=== PATIENT | female | born 1950 | race Asian ===

== ENCOUNTER 2023-05-10 08:19 | Observation (INO) | payer OTHER ==
[~2023-05-10] VITALS: Ht 149.9 cm; Wt 52.2 kg
[2023-05-10 08:30] VITALS: BP_SYST 182; PULSE 86; RESP 22; TEMP 98.2; O2SAT 98
[2023-05-10] MEDS: LABETALOL HCL 20 MG/4 ML CARTRIDGE IVP ONE (09:22)
[2023-05-10 09:31] LABS: BASOPHILS # (AUTO) 0.1 K/uL (0.0-0.2); BASOPHILS % (AUTO) 1.9 % (0.0-2.0); EOSINOPHILS # (AUTO) 0.3 K/uL (0.0-0.4); EOSINOPHILS % (AUTO) 5.5 % (0.0-4.0); HEMATOCRIT 39.3 % (36-48); HEMOGLOBIN 13.5 g/dL (12.0-16.0); LYMPHOCYTES # (AUTO) 1.7 K/uL (1.0-5.5); LYMPHOCYTES % (AUTO) 29.5 % (20.5-51.5); MEAN CORPUSCULAR HEMOGLOBIN 31 pg (27-31); MEAN CORPUSCULAR HGB CONC 34 % (32-36); MEAN CORPUSCULAR VOLUME 90 fL (79.0-98.0); MONOCYTES # (AUTO) 0.6 K/uL (0.0-1.0); MONOCYTES % (AUTO) 10.2 % (1.7-9.3); NEUTROPHILS % (AUTO) 52.9 % (40.0-70.0); PLATELET COUNT (AUTO) 335 K/uL (130-430); RED BLOOD CELL COUNT(AUTO) 4.37 MIL/uL (4.2-6.2); RED CELL DISTRIBUTION WIDTH 13.1 % (9.0-15.0); WHITE BLOOD COUNT (AUTO) 5.6 K/uL (4.8-10.8)
[2023-05-10 09:35] LABS: ANION GAP 10 (5-15); CALCIUM 8.9 mg/dL (8.4-11.0); CARBON DIOXIDE 28 mmol/L (23-29); CHLORIDE 106 mmol/L (98-107); CREATININE 0.97 mg/dL (0.55-1.30); GLUCOSE 101 mg/dL (74-106); POTASSIUM 3.7 mmol/L (3.5-5.1); SODIUM SERUM 144 mmol/L (136-145); UREA NITROGEN, BLOOD 16 mg/dL (8-21)
[2023-05-10 09:36] LABS: PROTHROMBIN TIME 9.9 SECS (9.5-12.5)
[2023-05-10 09:37] LABS: BILIRUBIN,URINE NEGATIVE (NEGATIVE); CLARITY/URINE CLEAR (CLEAR); COLOR,URINE YELLOW (YELLOW); GLUCOSE,URINE NEGATIVE (NEGATIVE); KETONES,URINE NEGATIVE (NEGATIVE); LEUKOCYTE ESTERASE ,URINE NEGATIVE (NEGATIVE); NITRITE, URINE NEGATIVE (NEGATIVE); PROTEIN URINE TRACE (NEGATIVE); UROBILINOGEN,URINE 0.2 (0.2-1.0)
[2023-05-10] MEDS ORDERED: ALEN70TA27 PO (09:37)
[2023-05-10] MEDS ORDERED: SIMV-46 PO (09:37)
[2023-05-10] MEDS ORDERED: CLON0.1T PO (09:37)
[2023-05-10] MEDS ORDERED: LOSA-412 PO (09:37)
[2023-05-10 09:39] LABS: GFR AFRICAN AMERICAN 73 mL/min (>90)
[2023-05-10 09:40] LABS: BLOOD, URINE TRACE (NEGATIVE)
[2023-05-10 09:40] LABS: GFR NON AFRICAN-AMERICAN 60 mL/min (>90)
[2023-05-10 09:41] LABS: ALANINE AMINOTRANSFERASE 48 U/L (12-78); ALBUMIN 3.5 g/dL (3.4-4.8); ASPARTATE AMINOTRANSFERASE 33 U/L (10-37); BILIRUBIN,DIRECT 0.1 mg/dL (0.0-0.3); CHOLESTEROL 169 mg/dL (<200); CREATINE KINASE, TOTAL 166 U/L (26-192); HDL CHOLESTEROL 59 mg/dL (>55); TOTAL BILIRUBIN 0.5 mg/dL (0.0-1.0); TRIGLYCERIDES 239 mg/dL (30-150)
[2023-05-10 09:49] LABS: HEMOGLOBIN A1C 5.61 % (<5.7)
[2023-05-10 09:51] LABS: BARBITURATE, URINE NEGATIVE (NEG <=200); BENZODIAZEPINE, URINE NEGATIVE (NEG <=150); CANNABINOID, URINE NEGATIVE (NEG <=50); COCAINE, URINE NEGATIVE (NEG <=150); METHAMPHETAMINES SCREEN,URINE NEGATIVE (NEG <=500); OPIATE, URINE NEGATIVE (NEG <=100); PHENCYCLIDINE SCREEN,URINE NEGATIVE (NEG <=25); URINE AMPHETAMINE NEGATIVE (NEG <=500); URINE METHADONE NEGATIVE (NEG <=200); URINE OXYCODONE SCREEN NEGATIVE (NEG <=100)
[2023-05-10 09:52] LABS: UR TRICYCLIC ANTIDEPRESSANTS NEGATIVE (NEG <=300)
[2023-05-10 10:02] LABS: BACTERIA,URINE RARE /HPF (None Seen); RBC,URINE 0-3 /HPF (0-3); WBC,URINE 0-3 /HPF (0-3)
[2023-05-10] MEDS: ASPIRIN 81 MG TAB.CHEW PO ONE (11:02)
[2023-05-10] MEDS: NIFEdipine 30 MG TAB.ER.24 PO ONE (12:32)
[2023-05-10] MEDS: cloNIDine HCL 0.1 MG TABLET PO PRN (12:32)
[2023-05-10 15:11] VITALS: BP_SYST 152; PULSE 61; RESP 18; TEMP 97.7; O2SAT 97
[2023-05-10 15:23] VITALS: BP_SYST 152; PULSE 61; RESP 18; TEMP 97.7
[2023-05-10 16:27] VITALS: BP_SYST 144; PULSE 65; RESP 18; TEMP 97.9; O2SAT 96
[2023-05-10 20:10] VITALS: BP_SYST 131; PULSE 70; RESP 18; TEMP 96.9; O2SAT 98
[2023-05-10] MEDS: METOPROLOL SUCCINATE 25 MG TAB.SR.24H (TOPROL XL) PO SCH (21:26)
[2023-05-11 00:20] VITALS: BP_SYST 141; PULSE 67; RESP 17; TEMP 96.4; O2SAT 97
[2023-05-11] MEDS ORDERED: CALC-1050 PO (02:04)
[2023-05-11] MEDS ORDERED: VITD2000 PO (02:04)
[2023-05-11] MEDS ORDERED: MIRT-91 PO (02:04)
[2023-05-11 05:22] LABS: BASOPHILS # (AUTO) 0.1 K/uL (0.0-0.2); BASOPHILS % (AUTO) 1.1 % (0.0-2.0); EOSINOPHILS # (AUTO) 0.4 K/uL (0.0-0.4); EOSINOPHILS % (AUTO) 5.1 % (0.0-4.0); HEMATOCRIT 39.7 % (36-48); HEMOGLOBIN 13.6 g/dL (12.0-16.0); LYMPHOCYTES # (AUTO) 2.3 K/uL (1.0-5.5); LYMPHOCYTES % (AUTO) 31.7 % (20.5-51.5); MEAN CORPUSCULAR HEMOGLOBIN 31 pg (27-31); MEAN CORPUSCULAR HGB CONC 34 % (32-36); MEAN CORPUSCULAR VOLUME 91 fL (79.0-98.0); MONOCYTES # (AUTO) 0.7 K/uL (0.0-1.0); MONOCYTES % (AUTO) 10.1 % (1.7-9.3); NEUTROPHILS # (AUTO) 3.8 K/uL (1.8-7.7); PLATELET COUNT (AUTO) 324 K/uL (130-430); RED BLOOD CELL COUNT(AUTO) 4.35 MIL/uL (4.2-6.2); RED CELL DISTRIBUTION WIDTH 13.2 % (9.0-15.0); WHITE BLOOD COUNT (AUTO) 7.2 K/uL (4.8-10.8)
[2023-05-11 05:52] LABS: CALCIUM 9.3 mg/dL (8.4-11.0); CREATININE 0.86 mg/dL (0.55-1.30); POTASSIUM 3.9 mmol/L (3.5-5.1)
[2023-05-11 08:00] VITALS: BP_SYST 156; PULSE 73; RESP 16; TEMP 98.6; O2SAT 97
[2023-05-11] MEDS: NIFEdipine 30 MG TAB.ER.24 PO SCH (08:49)
[2023-05-11 11:04] VITALS: BP_SYST 159; PULSE 87; RESP 15; TEMP 97.1; O2SAT 97
[2023-05-11] MEDS ORDERED: NIFE-129 PO (11:34)
[2023-05-11] MEDS ORDERED: METO-540 PO (11:34)
[2023-05-11 12:28] VITALS: BP_SYST 159; PULSE 87; RESP 15; TEMP 97.1; O2SAT 97
== END 2023-05-11 13:33 | disposition home or self-care (01) ==
LOC: SED 08:19 → SMU 10:17
PROVIDERS: ADMIT Specialist; ATTEND Specialist
DX: I16.0 Hypertensive urgency (principal); I10 Essential (primary) hypertension; I44.0 Atrioventricular block, first degree; R47.1 Dysarthria and anarthria; R94.31 Abnormal electrocardiogram [ECG] [EKG]; Z86.73 Personal history of transient ischemic attack (TIA), and cerebral infarction without residual deficits; Z79.899 Other long term (current) drug therapy
CPT/HCPCS: 96374; 80307; 80076; 80061; 80048 ×2; 81000; 81015; 81001; 82550; 83037; 83880; 85025 ×2; 85610; 85730; 86886; 86900; 86901; 84484; 36415 ×2; 71045; 70450; 70551; 99284; 93306; 97112; 97530; 97116; 97162; G0378 ×2